=== PATIENT | female | born 1950 | race Caucasian/White ===

== ENCOUNTER 2019-04-09 05:42 | Emergency (ER) | payer MEDICARE, BC ==
[~2019-04-09] VITALS: Ht 167.6 cm; Wt 88.5 kg
--- NOTE | 2019-04-09 06:01 | NUR ---
PT BIBF. C/O "WOKE UP A WHILE AGO WITH LOWER BACK PAIN, ALSO FEELING A BIT SHORT OF BREATH" -SOB NOTED. PT AOX4. VSS. AMBULATORY.
[2019-04-09] MEDS ORDERED: predniSONE 20 MG TABLET ONE (06:24)
[2019-04-09] MEDS ORDERED: predniSONE 20 MG TABLET PO ONE (06:30)
[2019-04-09 07:33] VITALS: BP 134/77
--- NOTE | 2019-04-09 07:33 | NUR ---
Patient discharged to home in stable condition. Written and verbal after care instructions given. Patient verbalizes understanding of instruction.
== END 2019-04-09 07:33 | disposition home or self-care (01) ==
LOC: ER 05:47
DX: J44.9 Chronic obstructive pulmonary disease, unspecified (principal); M54.5 Low back pain; G47.33 Obstructive sleep apnea (adult) (pediatric); I10 Essential (primary) hypertension; Z90.710 Acquired absence of both cervix and uterus; Z88.1 Allergy status to other antibiotic agents
CPT/HCPCS: 36415; 84484; 93005; 99284; J7512